=== PATIENT | female | born 1970 | race Caucasian/White ===

== ENCOUNTER → 2016-04-27 | Outpatient (CLI) | payer OTHER, SELFPAY | END | disposition short-term general hospital (02) | LOC: CLORTH 04-13 10:53 | DX: S82.65XG Nondisplaced fracture of lateral malleolus of left fibula, subsequent encounter for closed fracture with delayed healing (principal) ==

== ENCOUNTER → 2016-05-25 | Outpatient (CLI) | payer OTHER, SELFPAY | END | disposition short-term general hospital (02) | LOC: CLORTH 03:34 | DX: S82.65XK Nondisplaced fracture of lateral malleolus of left fibula, subsequent encounter for closed fracture with nonunion (principal) ==

== ENCOUNTER → 2016-07-20 | Outpatient (CLI) | payer OTHER | END | disposition short-term general hospital (02) | LOC: CLORTH 10:43 | DX: S82.65XD Nondisplaced fracture of lateral malleolus of left fibula, subsequent encounter for closed fracture with routine healing (principal) ==